=== PATIENT | female | born 1995 | race Caucasian/White ===

== ENCOUNTER 2017-05-17 09:07 | Inpatient (IN) | payer OTHER ==
[~2017-05-17] VITALS: Ht 160 cm; Wt 77.1 kg
[2017-05-17] VITALS (23 sets, daily range): BP systolic 105–148; BP diastolic 58–102
[2017-05-17] MEDS: PRENATAL VITAMINS CHEWABLE TABLET PO SCH (09:00)
[2017-05-17] MEDS ORDERED: TUMS500C PO (09:16)
[2017-05-17] MEDS ORDERED: UNIS25TA2 PO (09:17)
[2017-05-17] MEDS ORDERED: LACTATED RINGER'S 1000 ML IV STA (10:02)
[2017-05-17] MEDS ORDERED: LR 1,000 ML IV SCH (10:02)
--- NOTE | 2017-05-17 10:27 | HPEPDOC ---
Obstetrical History & Physical General Date of Admission May 17, 2017 at 09:48 History of Present Illness 21 y/o at 39+3 with LOF and increasing reg painful ctx's since 730. many ctx's last 2 days. No VB. Pos FM. 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) Past Medical History Medical History denies Surgical History: Dilatation and Curettage, Tonsilectomy Family History Significant Family History: No pertinent family hx Social History Marital Status: Family situation: Spouse/partner home Psychosocial History: No pertinent psych hx * Smoker: non-smoker Alcohol: Denies Drugs: denies Abuse Violence Screening Have you been hit/kicked/slapp: No Have you been sexually assault: No Imunizations Tdap status: current Influenza Status: declined Allergies Coded Allergies: No Known Allergies (Unverified , 05/17/17) Medications Scheduled (Unisom) 25 Mg Tab, 25 MG PO DAILY Calcium Carbonate (Tums) 500 Mg Chw, 500 MG PO DAILY Physical Examination Physical Examination GENERAL: Alert and oriented times three. BREAST: . ABDOMEN: Gravid and non-tender to touch. FETUS: Is vertex (VTX) by sterile vaginal examination, cx 3/80/-2, nitr pos with obv gush with check EXTREMITIES: No edema. No clonus. Vital Signs/I&O Vital Signs Date Time Temp Pulse Resp B/P (MAP) Pulse Ox O2 Delivery O2 Flow Rate FiO2 05/17/17 09:28 97.9 108 20 148/102 (117) Room Air Laboratory Data 24H LABS Laboratory Tests 2 05/17/17 09:55: Serology Scanned Report Hepatitis B Testing Urine Culture: No Growth Pertinent Laboratoy Data Blood Type: O+ RBC Antibody Screen: Negative HIV: Negative Hepatitis B: Negative Hepatitis C: Unknown Rapid Plasma Reagin: Nonreactive Rubella: Immune Varicella: Immune Chlamydia/Gonorrhea: Negative Group B Streptococcus: Negative Quad Screen Test: Negative Cystic Fibrosis: Negative Glucose Tolerance Test: 153 (neg 3 hr GTT) Anatomy Ultrasound Placenta Location: Posterior Normal Anatomy: Yes (tiny EI focus x1) Placenta Previa: No Assessment Variability: Moderate Accelerations: Positive Decelerations: None Tocometer Contractions: Yes Frequency: regular Duration: less than 60 seconds Strength: palpated as moderate Assessment/Plan Assessment SROM at 730. GBS neg. Plan Admit and orient. 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 Diet: clrs Group B Streptococcus (GBS) neg Labs and intravenous (IV) per unit protocol. Counseled on Pitocin possibility at noon if unchanged Lactated Ringers (LR): Bolus 1000 prior to epidural then 125 Anticipate C-S as appropriate. Sessions MD SESSIONS,SIAIAS Alvarado MD May 17, 2017 10:27
[2017-05-17 10:39] LABS: MEAN CORPUSCULAR HEMOGLOBIN 23.2 pg (27.0-33.0); MEAN CORPUSCULAR HGB CONC 30.3 g/dl (32.0-36.5); MEAN CORPUSCULAR VOLUME 76.4 fl (80.0-96.0); PLATELET COUNT, AUTOMATED 288 10^3/uL (150-450); RED CELL DISTRIBUTION WIDTH 16.3 % (11.5-14.5); WHITE BLOOD COUNT 13.4 10^3/uL (4.0-10.0)
[2017-05-17] MEDS ORDERED: FENTANYL 2MCG/ML ROPIVACAINE 0.2% IN 0.9% NACL 200ML IVBAG As Ordered ONE (11:19)
--- NOTE | 2017-05-17 13:54 | IPNPDOC ---
Text Note Date of Service The patient was seen on 05/17/17. NOTE FHT Cat 1, mod mary and pos accels, reg ctx Cx 7-8/100/-1 Difficulty handling her pain Nubain 10 IV and Phenergan 12.5 IV X1 now Sessions VS,Chela, I+O VS, Chela, I+O Laboratory Tests 05/17/17 10:15 Red Blood Count 4.36, Mean Corpuscular Volume 76.4 L, Mean Corpuscular Hemoglobin 23.2 L, Mean Corpuscular Hemoglobin Concent 30.3 L, Red Cell Distribution Width 16.3 H Vital Signs Date Time Temp Pulse Resp B/P (MAP) Pulse Ox O2 Delivery O2 Flow Rate FiO2 05/17/17 12:44 99.4 86 18 132/65 (87) Room Air 05/17/17 11:37 99 I&O- Last 24 Hours up to 6 AM 05/18/17 06:00 Intake Total 1000 ml Balance 1000 ml SESSIONS,ISAIAS Alvarado MD May 17, 2017 13:54
[2017-05-17] MEDS ORDERED: NALBUPHINE HCL 10 MG/ML AMP (J2300) IV ONE (14:00)
[2017-05-17] MEDS ORDERED: PROMETHAZINE INJ 25 MG/ML VIAL (J2550) IV ONE (14:00)
[2017-05-17] MEDS ORDERED: OXYTOCIN 30 UNITS IN 0.9% NaCl 500ML IV BAG (J2590) As Ordered ONE (15:05)
[2017-05-17] MEDS ORDERED: OXYTOCIN DRIP 30 UNITS in APPROPRIATE DILUENT 1 EA IV SCH (16:46)
[2017-05-17] MEDS ORDERED: RHOGAM 300 MCG (1500 IU) INJ (J2790) IM SCH (17:00)
[2017-05-17] MEDS ORDERED: MEASLES,MUMPS,RUBELLA VACCINE INJ (MMR-II) (90707) SC SCH (17:00)
[2017-05-17] MEDS ORDERED: DIBUCAINE 1% OINTMENT 30GM TOP PRN (17:00)
--- NOTE | 2017-05-17 17:03 | DNPDOC ---
[facility] Delivery Note Delivery Note DATE OF DELIVERY: [id number] @ 1623 PREDELIVERY DIAGNOSIS: 39/7 weeks' gestation and labor. POST DELIVERY DIAGNOSIS: Delivered. PROCEDURE: Spontaneous vaginal delivery DENTAL RESIDENT: Dr. Ross ANESTHESIA: Failed epidural-see anesthesia note, received Nubain/Phenergan >2 hrs prior to delivery ESTIMATED BLOOD LOSS: 200 mL. FINDINGS: 7 pound 1 ounce female infant, Score 8/9, nuchal cord times 2, loose DELIVERY SUMMARY: Great effort. Unmedicated. Vtx del'd, nuchal easily reduced X2, no delay of left ant or post shoulder. To abd. Vigorous. Cord C/C and cut by FOB. Cord blood. Placenta intact with traction and fundal massage. Both lac sites injected with 1% lidocaine. Small right labial separation repaired easily with 4-0 vicryl. Left sided perineal first degree lac repaired in standard fashion with 3-0 vicryl. Good cosmesis/hemostasis. Uncomplicated. ISAIAS Reyes MD, MD May 17, 2017 17:03
[2017-05-17] MEDS ORDERED: LIDOCAINE 1% MDV INJ 50 ML VIAL SC ONE (18:00)
[2017-05-17] MEDS ORDERED: diphenhydrAMINE INJ 50MG/ML VIAL (J1200) IV PRN (18:15)
[2017-05-17] MEDS ORDERED: EPIDURAL COMMENT XX SCH (18:15)
[2017-05-17] MEDS ORDERED: NALOXONE INJ 0.4 MG/1 ML VIAL (J2310) IV PRN (18:15)
[2017-05-17] MEDS ORDERED: ONDANSETRON 4MG/2ML VIAL (J2405) IV PRN (18:15)
[2017-05-17] MEDS ORDERED: FENTANYL/ROPIVACAINE/NACL BAG 200 ML EPIDURAL SCH (18:15)
[2017-05-17] MEDS ORDERED: REFRIGERATOR IV KEYS XX PRN (18:15)
[2017-05-17] MEDS ORDERED: EPIDURAL/PCA KEYS XX PRN (18:15)
[2017-05-17] MEDS: LR 1,000 ML IV SCH (18:23)
[2017-05-17] MEDS: FIORICET TAB PO PRN (18:34)
[2017-05-17] MEDS: DOCUSATE SODIUM 100 MG CAP PO SCH (21:05)
[2017-05-18] MEDS: FIORICET TAB PO PRN ×3 (00:26→16:15)
[2017-05-18] MEDS: LR 1,000 ML IV SCH ×3 (00:28→17:04)
[2017-05-18 01:15] VITALS: BP 124/77
[2017-05-18] MEDS: IBUPROFEN 800 MG TAB PO PRN ×3 (05:13→20:45)
[2017-05-18 06:03] VITALS: BP 117/51
--- NOTE | 2017-05-18 06:37 | IPNPDOC ---
Text Note Date of Service The patient was seen on 05/18/17. NOTE PPD1 prog note s/p wet tap (abnl lima) and on prn fioricet and maint IV fluids States feeling well, no complaints. MICHAEL improving. No heavy VB. Pain controlled. Voiding, ambulatory. Bonding well and feeding well. VSSAF CTAB RRR Ut at U-2, firm Ext no CCE a/p: Doing well. routine pp care. If MICHAEL worsens or is not resolved by tomorrow AM will need anesthesia consultation for consideration of patch prior to d/c. Sessions Chela CRUZ, I+O Chela LONG I+O Laboratory Tests 05/17/17 10:15 Red Blood Count 4.36, Mean Corpuscular Volume 76.4 L, Mean Corpuscular Hemoglobin 23.2 L, Mean Corpuscular Hemoglobin Concent 30.3 L, Red Cell Distribution Width 16.3 H Vital Signs Date Time Temp Pulse Resp B/P (MAP) Pulse Ox O2 Delivery O2 Flow Rate FiO2 05/18/17 06:03 99.1 104 18 117/51 (73) 05/17/17 15:04 Room Air 05/17/17 11:37 99 SESSIONS,ISAIAS Alvarado MD May 18, 2017 06:37
[2017-05-18] MEDS: DOCUSATE SODIUM 100 MG CAP PO SCH ×2 (08:45→20:45)
[2017-05-18] MEDS: PRENATAL VITAMINS CHEWABLE TABLET PO SCH (08:45)
[2017-05-18 18:00] VITALS: BP 141/61
[2017-05-19] MEDS: FIORICET TAB PO PRN ×3 (00:16→20:05)
[2017-05-19] MEDS: LR 1,000 ML IV SCH ×3 (01:05→13:27)
[2017-05-19] MEDS: IBUPROFEN 800 MG TAB PO PRN (04:59)
[2017-05-19 05:00] VITALS: BP 104/53
--- NOTE | 2017-05-19 07:19 | DS.PDOC ---
Discharge Summary General Date of Admission May 17, 2017 at 09:48 Date of Discharge [id number] Discharge Summary Discharge Summary Admission Diagnosis: active labor at term Discharge Diagnosis: s/p uncomplicated spontaneous vaginal delivery Condition: stable Meds on discharge: Tylenol, Colace, Lanolin, Motrin, Nor QD for PP contraception Hospital Course: Pt is a 22 yo admitted in active labor at term. The pt progressed to well through labor and had an uncomplicated . Unfortunately had a wet tap with epidural attempt. She had 2 doses of IV antibiotics for pos GBS. Please see delivery note for details. On PPD2, the pt had normal VS, the pt was tolerating reg diet, ambulating, pain was well controlled, minimal lochia. She was desirous of discharge and was discharged on PPD2 with follow up in 6-8wks in OB clinic. Anesthesia was to evaluate and possibly treat with a blood patch before discharge on PPD2. Home recommendations: Nothing in vagina for 6 weeks Vital Signs/I&Os Vital Signs Date Time Temp Pulse Resp B/P (MAP) Pulse Ox O2 Delivery O2 Flow Rate FiO2 05/19/17 05:00 98.9 85 16 104/53 (70) 97 Room Air Discharge Medications Scheduled (Unisom) 25 Mg Tab, 25 MG PO DAILY, (Reported) Calcium Carbonate (Tums) 500 Mg Chw, 500 MG PO DAILY, (Reported) Allergies Coded Allergies: No Known Allergies (Unverified , 05/17/17) STEPHANIE,ISAIAS Alvarado MD May 19, 2017 07:19
--- NOTE | 2017-05-19 07:26 | IPNPDOC ---
Text Note Date of Service The patient was seen on 05/19/17. NOTE PPD2 prog note s/p wet tap (abnl lima) and on prn fioricet and maint IV fluids States feeling OK but complains of signif MICHAEL with holding her head up or sitting up. No heavy VB. Pain controlled. Voiding, ambulatory. Bonding well and feeding well. VSSAF CTAB RRR Ut at U-2, firm Ext no CCE a/p: Doing well. MICHAEL worsening, is not resolved. anesthesia consultation for strong consideration of patch prior to d/c this AM Sessions MD LONG,Chela, I+O VSChela, I+O Vital Signs Date Time Temp Pulse Resp B/P (MAP) Pulse Ox O2 Delivery O2 Flow Rate FiO2 05/19/17 05:00 98.9 85 16 104/53 (70) 97 Room Air SESSIONS,ISAIAS Alvarado MD May 19, 2017 07:26
[2017-05-19] MEDS ORDERED: COLA100C5 PO (08:23)
[2017-05-19] MEDS ORDERED: PRENTAB9 PO (08:25)
[2017-05-19] MEDS ORDERED: ADVI200C5 PO (08:26)
[2017-05-19] MEDS: PRENATAL VITAMINS CHEWABLE TABLET PO SCH (08:51)
[2017-05-19] MEDS: DOCUSATE SODIUM 100 MG CAP PO SCH ×2 (08:51→20:02)
[2017-05-19 13:00] VITALS: BP 127/70
[2017-05-19 13:30] VITALS: BP 124/71
[2017-05-19 14:30] VITALS: BP 114/65
[2017-05-19 15:30] VITALS: BP 122/73
[2017-05-19 18:00] VITALS: BP 126/69
[2017-05-20] VITALS (7 sets, daily range): BP systolic 117–150; BP diastolic 67–80
[2017-05-20] MEDS: LR 1,000 ML IV SCH ×2 (00:46→08:31)
--- NOTE | 2017-05-20 02:20 | REPUSA ---
CLINICAL HISTORY: Dyspnea COMMENTS: The cardiac silhouette is enlarged. There is evidence for pulmonary venous congestion compatible with fluid overload/edema. Bilateral basilar airspace opacities of the lungs. There is no definite radiographic evidence for a lung mass. Bony structures appear normal. IMPRESSION: 1. Enlarged cardiac silhouette. 2. Pulmonary venous congestion compatible with fluid overload/edema. 3. Bilateral basilar airspace opacities. Possibly secondary to multifocal pulmonary congestion. Thank you for your kind referral of this patient.
[2017-05-20] MEDS: FIORICET TAB PO PRN ×3 (02:56→16:29)
[2017-05-20] MEDS: PRENATAL VITAMINS CHEWABLE TABLET PO SCH (08:33)
[2017-05-20] MEDS: DOCUSATE SODIUM 100 MG CAP PO SCH ×2 (08:33→21:47)
[2017-05-20] MEDS ORDERED: FUROSEMIDE 20 MG/2 ML VIAL (J1940) IV ONE (18:30)
[2017-05-21] MEDS: FIORICET TAB PO PRN ×2 (00:21→06:16)
[2017-05-21 02:15] VITALS: BP 137/75
[2017-05-21 06:24] VITALS: BP 121/64
[2017-05-21] MEDS ORDERED: DIBU1OIN TOP (07:42)
[2017-05-21] MEDS ORDERED: FIOR1CAP PO (07:42)
[2017-05-21] MEDS: PRENATAL VITAMINS CHEWABLE TABLET PO SCH (07:55)
[2017-05-21] MEDS: DOCUSATE SODIUM 100 MG CAP PO SCH (07:55)
--- NOTE | 2017-05-21 08:22 | DSES ---
DATE OF ADMISSION: 05/17/2017 DATE OF DISCHARGE: This is a 22-year-old, 2, now para 1, admitted at 39 and 3 weeks with spontaneous rupture of membranes in labor. She had a spontaneous vaginal delivery of a live female , 7 pounds 1 ounce, Apgars of 8 and 9 at one and five minutes respectively. Cord was around the neck times two. She had a failed epidural which ended up as a spinal headache. She required a blood patch. She also had some pulmonary edema with fluid overload requiring vigorous therapy. She had 10 mg of Lasix and put out approximately 1500 mL of fluid. Initial examination showed that she had decreased breath sounds to the lungs. Chest x-ray confirmed pulmonary fluid overload and she had pedal edema. After her diuresis, her pedal edema went down considerably. She was mobilized. She felt better and was able to sit and stand. She had no evidence of headache taking Fioricet on a regular interval basis. Her admitting hemoglobin was 10.1, hematocrit 33.3 and platelets were 288. Her vital signs today revealed her blood pressure is 121/64, respirations 20, pulse 84, and temperature is 98.6. Her total ins and outs today on a 24-hour basis was 1230 mL of fluid. The rest of the examination was unremarkable. She is normocephalic, atraumatic. Neck with full range of motion. Pupils equal and reactive to light. No pain on movement of her head. Her distal pulses are symmetric. No evidence of deep vein thrombosis (DVT), pulmonary embolism (PE) or superficial phlebitis. Pedal edema is resolved. Chest is clear this morning. No wheezes or rhonchi. No costovertebral angle (CVA) tenderness. Uterus is 2 below. Lochia is moderate. Four quadrant bowel sounds are noted. Perineum is healing. She has no rashes, lesions or pruritus. No arthralgia or myalgia. No complaint of cough, wheezes, shortness of breath or dyspnea on exertion. No headache. No chest pain. No bleeding. Neuro complete. No incontinency or frequency. No nausea, vomiting, diarrhea or constipation. In summary, we have a term gestation who delivered a live female and had a failed epidural and spinal headache which resolved. The patient is discharged to followup in the office in two weeks' time.
[2017-05-21 10:00] VITALS: BP 122/96
== END 2017-05-21 12:15 | disposition home or self-care (01) | DRG 775 ==
LOC: M LDO 09:07 → M LDI 09:48 → M OBS 18:40
PROVIDERS: ADMIT Obstetrics & Gynecology; ATTEND Obstetrics & Gynecology
PROC: 10E0XZZ Delivery of Products of Conception, External Approach (ICD-10-PCS; principal; 2017-05-17)
PROC: 0HQ9XZZ Repair Perineum Skin, External Approach (ICD-10-PCS; 2017-05-17)
DX: O69.82X0 Labor and delivery complicated by other cord entanglement, without compression, not applicable or unspecified (principal); Z37.0 Single live birth; Z3A.39 39 weeks gestation of pregnancy; O70.0 First degree perineal laceration during delivery; O99.820 Streptococcus B carrier state complicating pregnancy

== ENCOUNTER 2017-05-23 05:37 | Inpatient (IN) | payer OTHER ==
[~2017-05-23] VITALS: Ht 160 cm; Wt 70.1 kg
[~2017-05-23 05:37] MED LIST: ADVI200C5 PO; COLA100C5 PO; DIBU1OIN TOP; FIOR1CAP PO; PRENTAB9 PO; TUMS500C PO; UNIS25TA2 PO
[2017-05-23 06:25] LABS: BASO % 0.1 % (0.0-1.0); EOS # 0.1 10^3/uL (0.0-0.50); EOS % 0.8 % (0.0-3.0); IMMATURE GRANULOCYTE % 2.8 % (0-0); LYMPH # 1.3 10^3/uL (1.5-6.5); LYMPH % 7.8 % (24.0-44.0); MEAN CORPUSCULAR HEMOGLOBIN 23.9 pg (27.0-33.0); MEAN CORPUSCULAR HGB CONC 30.8 g/dl (32.0-36.5); MEAN CORPUSCULAR VOLUME 77.5 fl (80.0-96.0); MONO # 0.7 10^3/uL (0.0-0.8); MONO % 4.3 % (0.0-5.0); NEUTROPHILS # 13.7 10^3/uL (1.8-7.7); NEUTROPHILS % 84.2 % (36.0-66.0); PLATELET COUNT, AUTOMATED 331 10^3/uL (150-450); RED CELL DISTRIBUTION WIDTH 17.2 % (11.5-14.5); WHITE BLOOD COUNT 16.2 10^3/uL (4.0-10.0)
[2017-05-23 06:36] LABS: INR 1.03
[2017-05-23 06:50] LABS: ALBUMIN 2.1 GM/DL (3.2-5.2); ALBUMIN/GLOBULIN RATIO 0.53 (1.00-1.93); ALKALINE PHOSPHATASE 181 U/L (45-117); ALT/SGPT 26 U/L (12-78); ANION GAP 10 MEQ/L (8-16); AST/SGOT 15 U/L (7-37); BILIRUBIN,DIRECT < 0.1 MG/DL (0.0-0.2); BILIRUBIN,TOTAL 0.2 MG/DL (0.2-1.0); BLOOD UREA NITROGEN 6 MG/DL (7-18); CALCIUM LEVEL 8.1 MG/DL (8.5-10.1); CARBON DIOXIDE LEVEL 20 MEQ/L (21-32); CHLORIDE LEVEL 115 MEQ/L (98-107); GLOMERULAR FILTRATION RATE > 60.0 (>60); GLUCOSE, FASTING 94 MG/DL (70-105); SODIUM LEVEL 145 MEQ/L (136-145); TOTAL PROTEIN 6.1 GM/DL (6.4-8.2)
[2017-05-23] MEDS ORDERED: ISOVUE-370 76% 100ML VIAL (Q9967) As Ordered ONE (06:52)
[2017-05-23 07:00] LABS: ABG BASE EXCESS -6.7 (-2.0-2.0); ABG HCO3 15.3 MEQ/L (22.0-26.0); ABG PARTIAL PRESSURE O2 119.1 mmHg (75.0-100.0); ABG STANDARD HCO3 18.9 MEQ/L (22.0-26.0); ABG TOTAL CO2 15.9 MEQ/L (22.0-29.0); ABG pH (ARTERIAL) 7.524 UNITS (7.350-7.450)
--- NOTE | 2017-05-23 07:40 | REPUSA ---
CLINICAL HISTORY: Dyspnea, exclude PE. TECHNIQUE: Multiple incremental axial, coronal and oblique images are obtained from the thoracic inle t to the upper abdomen. Intravenous contrast material was administered as per pulmonary embolism prot ocol. COMMENTS: Small pleural effusions. Passive atelectatic airspace disease in the lower lobes. Diffuse interstitial bilateral pulmonary thickening. Diffuse bilateral perihilar ground glass densities. Mild cardiomegaly. There is excellent opacification of pulmonary arterial system without evidence for pulmonary embolism . Aorta is of normal caliber without evidence for dissection or aneurysm. There is no evidence of pleural or parenchymal mass. There are no pleural effusions. There is no evid ence of hilar or mediastinal lymphadenopathy. The heart and great vessels are within normal limits. Images of the upper abdomen demonstrate no evidence of adrenal mass. The bony structures are free of lytic or blastic lesions. IMPRESSION: No evidence for pulmonary embolism. Small pleural effusions. Passive atelectatic airspace disease in the lower lobes. Diffuse interstitial bilateral pulmonary thickening. Diffuse bilateral perihilar ground glass densities. Mild cardiomegaly. Findings can be secondary to pulmonary congestion and interstitial pulmonary edema. Clinical evaluati on and followup are recommended to exclude associated infection/inflammatory pathology. Thank you for your kind referral of this patient.
--- NOTE | 2017-05-23 07:50 | REP ---
Clinical: Dyspnea. Technique: PA and lateral. Comparison: 05/20/2017. Findings: Bilateral perihilar and basilar atelectasis with small pleural effusions. Mediastinum and cardiac silhouette are within normal limits. No pneumothorax. Skeletal structures are intact. Impression: Perihilar and bibasilar atelectasis with small pleural effusions similar to prior examination. Signed by Franko Guo MD 05/23/2017 07:42 A
--- NOTE | 2017-05-23 07:51 | ECGEPIP ---
Stationary ECG Study [facility] - ED Test Date: 2017-05-23 Pat Name: VARUN GILL Department: Room: - Gender: F Psychiatric Nurse: sb : 1995 Requested By: JEROMY GORMAN Order Number: [id number] Reading MD: Asher Worley Measurements Intervals [place] Rate: 86 P: 12 KS: 114 QRS: 81 QRSD: 89 T: 34 QT: 369 QTc: 443 Interpretive Statements SINUS RHYTHM WITH SHORT [place] INTERVAL NO PRIORS FOR COMPARISON Electronically Signed On 05-23-2017 7:51:18 EST by Asher Worley
[2017-05-23] MEDS: ASCORBIC ACID 500 MG TAB PO SCH (09:00)
[2017-05-23] MEDS: FERROUS SULFATE 325MG TAB PO SCH (09:00)
[2017-05-23] MEDS: PRENATAL VITAMINS CHEWABLE TABLET PO SCH (09:00)
[2017-05-23] MEDS ORDERED: FUROSEMIDE 40 MG/4 ML VIAL (J1940) IV ONE (09:15)
[2017-05-23] MEDS ORDERED: ACETAMINOPHEN TAB 650MG DOSE (2X325MG) PO PRN (09:15)
[2017-05-23] MEDS ORDERED: ONDANSETRON 4MG/2ML VIAL (J2405) IV PRN (09:15)
[2017-05-23] MEDS ORDERED: ACET1TAB17 PO (09:30)
[2017-05-23] MEDS ORDERED: TUMS500C PO (09:30)
[2017-05-23] MEDS ORDERED: POTASSIUM CHLORIDE 10 MEQ SR TABLET PO ONE (09:30)
[2017-05-23] MEDS ORDERED: LEVALBUTEROL 1.25 MG/0.5 ML CONCENTRATE NEB INH PRN (10:30)
[2017-05-23] MEDS ORDERED: FIORICET TAB PO PRN ×2 (10:30→19:00)
[2017-05-23] MEDS ORDERED: ACETAMINOPHEN 325 MG TAB PO PRN (10:30)
[2017-05-23] MEDS ORDERED: GASTROGRAFIN SOLUTION 30ML (Q9963) PO ONE ×3 (10:35→11:05)
[2017-05-23] MEDS ORDERED: MAG SULF 1GM/100ML (MAG RUN) 1 GM in APPROPRIATE DILUENT 1 EA IV ONE (11:00)
[2017-05-23] MEDS: LEVALBUTEROL 1.25 MG/0.5 ML CONCENTRATE NEB INH SCH ×2 (11:31→19:31)
--- NOTE | 2017-05-23 11:31 | HPE ---
DATE OF ADMISSION: 05/23/2017 PRIMARY CARE PHYSICIAN: None. LABORER WHARF: Sai Guerra MD CHIEF COMPLAINT: Shortness of breath. HISTORY OF PRESENT ILLNESS: This is a 22-year-old 2, para 1 admitted at 39 and 3 weeks status post vaginal delivery who presents with complaint of lower extremity edema, worsening shortness of breath, initially with exertion, now currently at rest. Patient was given one dose of Lasix and was discharged home and now represents with worsening symptoms. The patient complains of weight gain, worsening dyspnea, no diaphoresis. Complains of substernal chest pain. No fever or chills with some dry cough. Positive paroxysmal nocturnal dyspnea (PND) and lower extremity edema and was found to have elevated BNP of 3141, ongoing vaginal bleeding, and hemoglobin of 7. Chest CT shows bilateral pleural effusions. The hospitalist service was called for management of new onset effusions, anemia and hypokalemia. The patient does admit to having one episode of diarrhea yesterday, a large amount when she got home, she has had low grade temperatures at home, found to have a slight increase in white count with increasing white count of16,000. The patient did have an epidural with post epidural headaches treated with a blood patch. She continues to take Fioricet for persistent headaches at home and continues to have vaginal bleeding about 1-2 pads every 6 hours. PAST MEDICAL HISTORY: 05/21/2017. Tonsillectomy. PAST SURGICAL HISTORY: Vaginal delivery. HOME MEDICATIONS: - Fioricet as needed - Colace 100 twice a day - multivitamin one tablet daily - calcium carbonate 500 as needed - dibucaine topical ointment as needed - acetaminophen 650 every 6 hours as needed SOCIAL HISTORY: Previous smoker, one pack of cigarettes every other day for about 10 years, quit a year ago when she found she was . Social alcohol use, quit about a year ago. 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 FAMILY HISTORY: Mother and father in their 50s. No medical problems. Mother is age 46. Maternal grandmother with ovarian cancer. Paternal great grandmother with breast cancer. REVIEW OF SYSTEMS: Per history of present illness. 10 point system otherwise negative. PHYSICAL EXAMINATION: Temperature 99.5, pulse 94, respiratory rate 20, blood pressure 147/86. Generally, patient is awake, alert and oriented times three, answering questions appropriately. Anicteric sclera, no jaundice. No thyromegaly. Moist mucous membranes. Lungs are diminished with fine crackles at the bases. Heart S1, S2, sinus tachycardia. Abdomen is soft, slightly tender in the bilateral lower quadrants. No rebound or guarding. Positive bowel sounds. Post . Extremities positive 1+ edema. EKG sinus rhythm. Ventricular rate of 86. Short LA interval. White count 6.3, hemoglobin 7, hematocrit 22.7, platelet count 331. Sodium 145, potassium 3, chloride 115, bicarb 20, BUN 6, creatinine 0.5, glucose of 94, Troponin less than 0.02, BNP 3141, total protein 6.1, TSH is pending, albumin is 2.1. Microbiology: One blood culture is pending. Urinalysis is pending. Chest CT shows bilateral small pleural effusions. Positive atelectasis in the lower lobes. Decreased interstitial bilateral pulmonary thickening. Diffuse bilateral perihilar ground glass densities. Findings can be mild cardiomegaly secondary to pulmonary congestion verus interstitial from pulmonary edema, infectious or inflammatory etiology. ASSESSMENT/PLAN: This is a 22-year-old female on 05/21/2017 who presents with ongoing dyspnea, lower extremity edema, who presented to the ER, was found to have small bilateral effusions and ground glass opacities on CT of the chest. The patient was found to have severe anemia with hemoglobin of 7 with ongoing vaginal bleeding as well as elevated BNP, potassium of 3. The hospitalist service was called for admission. Patient will be admitted as an inpatient for two midnights for the following issues: 1. Shortness of breath, multifactorial. Most likely secondary to severe symptomatic anemia with hemoglobin of 7, bilateral effusions noted on the CT of the chest. Rule out cardiomyopathy with echocardiogram. Continue with Lasix diuresis for now. Nebulizer treatments for symptomatic relief. Will consult with pulmonology once the patient is euvolemic if persistent symptoms occur. Patient will be transfused red blood cells. Check hemoglobin and hematocrit and continue with Lasix diuresis. Type and cross. Check iron studies and supplement with iron and vitamin C. 2. Diarrhea with hypokalemia. Low potassium level. GI panel will be checked as the patient was recently in the hospital. 3. Prior history of smoking. Quit smoking when she found out she was , about a year ago. 4. Diarrhea. Check gastrointestinal (GI) panel.
[2017-05-23 12:20] LABS: REASON FOR REVIEW COMPREHENSIVE REVIEW
--- NOTE | 2017-05-23 12:30 | REP ---
Clinical: Lower abdominal pain. Technique: Axial noncontrast images from the lung bases to the pubic symphysis using oral contrast material. Coronal and sagittal re-formations obtained. Comparison: None. Findings: The presumed bladder and uterus are both isoechoic and abnormally enlarged/distended and difficult to differentiate due to recent contrast enhanced chest CT increasing the density of fluid within the bladder to be essentially identical with the enlarged uterine parenchymal density. The structures together may anterior greater than 20 x 11 x 14 cm. These findings are otherwise nonspecific by current noncontrast evaluation but likely related to the patient's symptoms. Clinical/physical correlation and pelvic ultrasound are suggested. No free fluid or adenopathy is identified within the pelvis. Moderate bilateral pleural effusions are appreciated with bibasilar atelectasis. Liver, spleen, pancreas, gallbladder, bilateral adrenal glands and kidneys are normal. The enteric system is without obstruction or acute inflammatory process. Pelvic structures described above. Surrounding musculoskeletal structures are intact. Impression: 1. Bladder and uterus together are enlarged and isoechoic making further evaluation limited by current noncontrast examination. Findings are abnormal and require nickel/physical correlation as well as pelvic ultrasound. 2. Moderate bilateral pleural effusions and basilar atelectasis. Signed by Franko Guo MD 05/23/2017 12:22 P
--- NOTE | 2017-05-23 12:32 | ECHO ---
DATE OF PROCEDURE: 05/23/2017 REFERRING PHYSICIAN: Dr. Daisy Harrison INDICATION: Dyspnea in a 22-year-old female who is five days . HEIGHT : 63 inches WEIGHT: 76 kg DIMENSIONS: IVS: 1.2 LV: 4.5 LVPW: 0.9 LA: 3.9 Aorta: 3.0 FINDINGS: The study is of good technical quality. Left ventricle is of normal size and systolic function with estimated LVEF 60-65%. Right ventricle is also normal size and systolic function. Both atria appear normal. All four cardiac valves were well seen and appear normal. There is trace non compressive pericardial effusion. Inferior vena cava is of normal size and appropriately collapses with respiration, indicative of likely normal central venous pressure. Aortic root and aortic arch appear normal. Abdominal aorta was not well seen. Doppler interrogation reveals competent aortic and mitral valves. There is trace tricuspid insufficiency. Calculated pulmonary artery pressure is in the mid 20s corresponding to normal values. Pulmonic valve exhibits trace insufficiency. Evaluation of diastolic function reveals normal diastolic functional of left ventricle (Mitral E velocity is 96 cm/sec, A velocity 71, E prime septal 11 and E prime lateral 11 cm/sec). CONCLUSIONS: 1. Study is of good technical quality. 2. Normal LV size, systolic and diastolic function. 3. No significant valvular disease. 4. Normal central venous pressure and pulmonary artery pressure. 5. Trace pericardial effusion. 7. Also visualized are left pleural effusion and ascites. Recommendations: SBE prophylaxis is not recommended. MTDD
[2017-05-23 12:44] LABS: MAGNESIUM LEVEL 2.5 MG/DL (1.8-2.4); TOTAL IRON BINDING CAPACITY 327 UG/DL (250-450)
[2017-05-23 12:45] LABS: FERRITIN 49 NG/ML (8-252)
[2017-05-23] MEDS: FUROSEMIDE 40 MG/4 ML VIAL (J1940) IV SCH ×2 (13:02→17:50)
[2017-05-23 13:06] VITALS: BP 152/78
[2017-05-23 13:20] VITALS: BP 130/76
--- NOTE | 2017-05-23 13:27 | CR ---
DATE OF CONSULTATION: 05/23/2017 REFERRING PHYSICIAN: Dr. Harrison and Dr. Perrin INDICATION: Dyspnea. HISTORY OF PRESENT ILLNESS: Ayde is a 22-year-old female who just delivered a healthy girl on 05/17/2017 after a fairly uneventful . She said that she had no problems in the early period, but then approximately two days after she was discharged home, she started having trouble with orthopnea. She said as long as she was in an upright position she felt fine, but lying down was very difficult for her. She did not have any chest pain per se and did not have any other symptoms. She even felt that with ambulation she did not have significant dyspnea, but horizontal position just was not tolerated. She went to the clinic. A chest x-ray was obtained and revealed reportedly mild vascular redistribution. She was given a single dose of Lasix, felt better and went home. This morning, though, she woke up again with essentially orthopnea. She could not get comfortable and was not able to tolerate a horizontal position at all and actually when she was sitting up from a horizontal position she briefly lost consciousness. That prompted her to bring her to the emergency room for further evaluation. She had a chest x-ray and the initial diagnosis was congestive heart failure with pulmonary edema. The patient received a single dose of the furosemide IV and supplemental oxygen. She says that shortly after the oxygen administration she felt better and after she received furosemide she felt much better. Besides dyspnea and orthopnea she denies any palpitation and denies any chest pain. She does report that in the last several days she had on and off elevated temperature, but she usually has been taking Tylenol [id number] so it has not been much of an issue. She reports having had peripheral edema for most of the , but does not recall that there were ever would be a protein in her urine. She did not have any problems with blood pressure. She already had an electrocardiogram that was unremarkable and also underwent an echocardiogram that revealed preserved left ventricular systolic function, normal diastolic function, no significant valvular disease and normal central venous pressure and pulmonary artery pressure. Trace pericardial effusion was noted and it appears that there is small amount of ascites and left pleural effusion as well. At bedside, the patient feels much better. She says that right now she has no trouble lying flat at all. Besides the cardiac complaints, she also has a headache. She had problems with epidural and received a blood patch that was only partially successful. She denies any nausea or vomiting. She did have a single episode of diarrhea last night. Otherwise, her review of systems has been negative. PHYSICAL EXAMINATION: Young, white female, very pleasant, alert, oriented and appropriate. Last set of vital signs revealed blood pressure 130/81, heart rate in 90s and low 100s, afebrile, saturation 95% on room air. Weight is documented 76.36 kg. Her jugular venous pulse (JVP) is not elevated. I do not appreciate carotid bruit. Lungs are clear to auscultation with good air movement bilaterally. Heart exam reveals a regular rhythm. I would do not appreciate any gallop, rub or murmur, including positioning the patient. Abdomen is soft. There is mild tenderness in the lower abdomen, but otherwise nontender. Good bowel sounds. No hepatosplenomegaly. There is trace peripheral edema. Peripheral pulses are good quality. Skin is intact, even though she appears pale. Laboratory-bauer, CBC reveals a white blood cell count 16.2, hemoglobin 7, hematocrit 22 and platelet count 331,000. There are some major granulocytes in the differential. Basic metabolic panel with potassium 3, BUN 6, creatinine 0.5 , glucose 94. Normal liver function tests, but mildly elevated alkaline phosphatase at 181. Normal cardiac enzymes and terminal probe BNP is high at 3100. Albumin is 2.1 and TSH 0.5. INR is 1.0. She had a CT angiography of the chest that was negative for pulmonary embolism and is otherwise a fairly unremarkable study, but for possible small effusions. The chest x-ray seems suggestive of borderline cardiomegaly and vascular redistribution, but is not overly impressive. Echo and electrocardiogram as above. PAST MEDICAL HISTORY: Negative. PAST SURGICAL HISTORY: Negative. SOCIAL HISTORY: The patient is a . They just moved to [facility] in October 2016 and previous location was in [place], Does not smoke and no significant alcohol consumption. FAMILY HISTORY: Negative for sudden cardiac or cardiomyopathy in first-degree relatives. OUTPATIENT MEDICATIONS: None. She reports intolerance to Zyrtec, codeine, mushroom and pseudoephedrine. ASSESSMENT/PLAN: Mrs. Tovar is a 22-year-old female who presents with symptoms of dyspnea and orthopnea a few days after delivery. She is very anemic and also hypoalbuminemic. Her echocardiogram though is relatively normal other than revealing trivial pericardial effusion. I suspect that her symptoms are principally related to anemia. I am not sure how to interpret the immature cells and elevated white cell count. I ordered a urinalysis because the hypoalbuminemia seems to be rather peculiar in this situation. From a cardiac perspective though, I do not have any specific recommendations. Her CVP is not high and consequently I am not convinced that giving her around the clock diuretics is indicated. I suspect that one or two additional doses to correct the volume after administration of blood transfusion will be sufficient. Further management will depend on her clinical course, but she is already feeling much better and so I am hopeful that her hospitalization will be brief. YAW
[2017-05-23] MEDS ORDERED: HEPARIN SOD (PORCINE) 5000 UNITS/ML VIAL SC SCH (14:00)
[2017-05-23 15:45] VITALS: BP 130/76
[2017-05-23] MEDS: PIPERACILLIN/TAZOBACTAM SOD 3.375 GM in APPROPRIATE DILUENT 1 EA IV SCH (17:51)
[2017-05-23 20:00] VITALS: BP 133/84
[2017-05-24] VITALS: BP 122/75
[2017-05-24] MEDS: FUROSEMIDE 40 MG/4 ML VIAL (J1940) IV SCH ×2 (00:21→05:16)
[2017-05-24] MEDS: PIPERACILLIN/TAZOBACTAM SOD 3.375 GM in APPROPRIATE DILUENT 1 EA IV SCH ×3 (00:21→11:30)
[2017-05-24] MEDS: LEVALBUTEROL 1.25 MG/0.5 ML CONCENTRATE NEB INH SCH ×4 (03:47→11:14)
[2017-05-24 04:00] VITALS: BP 130/75
[2017-05-24 05:18] LABS: MEAN CORPUSCULAR HEMOGLOBIN 24.8 pg (27.0-33.0); MEAN CORPUSCULAR VOLUME 77.6 fl (80.0-96.0); PLATELET COUNT, AUTOMATED 394 10^3/uL (150-450); RED CELL DISTRIBUTION WIDTH 16.5 % (11.5-14.5); WHITE BLOOD COUNT 13.3 10^3/uL (4.0-10.0)
[2017-05-24 05:23] LABS: POS COUNT POS FLAG; POSITIVE MORPH POS FLAG
[2017-05-24 05:24] LABS: ADD MANUAL DIFFER YES; DIFF SLIDE NUMBER 56
[2017-05-24 06:51] LABS: BANDS 3 % (< 11); EOSINOPHILS 2 % (0-5)
[2017-05-24 06:53] LABS: ANISOCYTOSIS 1+; POLYCHROMASIA 1+
[2017-05-24] MEDS ORDERED: FUROSEMIDE 40 MG TAB PO ONE (07:00)
[2017-05-24 07:18] LABS: ANION GAP 11 MEQ/L (8-16); BLOOD UREA NITROGEN 8 MG/DL (7-18); CALCIUM LEVEL 8.7 MG/DL (8.5-10.1); CARBON DIOXIDE LEVEL 24 MEQ/L (21-32); CHLORIDE LEVEL 107 MEQ/L (98-107); CREATININE FOR GFR 0.56 MG/DL (0.55-1.02); GLOMERULAR FILTRATION RATE > 60.0 (>60); GLUCOSE, FASTING 83 MG/DL (70-105); SODIUM LEVEL 142 MEQ/L (136-145)
[2017-05-24 08:00] VITALS: BP 110/74
[2017-05-24] MEDS: PRENATAL VITAMINS CHEWABLE TABLET PO SCH (09:37)
[2017-05-24] MEDS: FERROUS SULFATE 325MG TAB PO SCH (09:38)
[2017-05-24] MEDS: POTASSIUM CHLORIDE 10 MEQ SR TABLET PO SCH ×2 (09:38→11:30)
[2017-05-24] MEDS: ASCORBIC ACID 500 MG TAB PO SCH (09:38)
--- NOTE | 2017-05-24 11:51 | ECGEPIP ---
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
[2017-05-24 12:00] VITALS: BP 133/80
[2017-05-24] MEDS ORDERED: LASI20TA PO (12:30)
[2017-05-24] MEDS ORDERED: POTA1TAB14 PO (12:30)
[2017-05-24] MEDS ORDERED: AUGM875T28 PO ×2 (12:31→14:00)
[2017-05-24] MEDS ORDERED: BACITAB PO ×2 (12:32→14:00)
[2017-05-24] MEDS ORDERED: POTA20TA4 PO (14:00)
[2017-05-24] MEDS ORDERED: LASI40TA PO (14:00)
--- NOTE | 2017-05-24 14:56 | IPN ---
DATE: 05/24/2017 Mrs. Tovar reports a fairly dramatic improvement in her condition. She slept without difficulty. She did not have any chest discomfort and she did not have any paroxysmal nocturnal dyspnea (PND). She continues to have some vaginal bleeding as expected. Her maximum temperature (Tmax) was 100.2 yesterday afternoon but has been afebrile since. Blood pressure 110/74. Heart rate has been from 60s to 100s, sinus rhythm. No ectopic beats. Saturation 99% on room air. Fluid balance yesterday was documented about a liter and half negative. Weight is 70.1 kg. Her jugular venous pulse (JVP) is not elevated. I do not appreciate carotid bruit. Lungs are clear. Heart exam irregular rhythm. No gallop, rub or murmur is noted. No edema. Neurologically intact. Laboratory bauer, hemoglobin 11.6, hematocrit 36, platelet count 93,000. Basic metabolic panel is normal but for a low potassium of 3.0 ASSESSMENT AND PLAN: Mrs. Tovar is a 22-year-old female who presented a few days after delivery of her first child with symptoms highly suggestive of congestive heart failure (CHF) with orthopnea. There was evidence for bilateral pleural effusions, even though relatively small and she had elevated and terminal probe brain natriuretic peptide (BNP). Simultaneously, she was quite hypoalbuminemic and very anemic. Her echocardiogram revealed preserved left ventricular (LV) systolic function and normal pulmonary artery pressure. I am a little bit perplexed with the whole presentation. The essentially normal echocardiogram argues against cardiomyopathy even though the symptoms were quite suggestive I believe that the severe anemia and yet additional potential infection may have played a role. From my perspective I think patient can be discharged home. I would give her a prescription for Lasix 20 mg to be taken only as needed for peripheral edema or shortness of breath. I do not believe that she needs any additional medications. From my perspective, as far as the anemia is concerned, it is corrected by 3 units of packed red blood cells she received. S she was started on supplemental iron and that should be continued for at least 2 or 3 months. I intend to see her in followup in the in the clinic in 2 or 3 weeks, but from my perspective, she can be discharged home.
--- NOTE | 2017-05-24 14:56 | REP ---
CHEST, PORTABLE: AP portable view of the chest is performed and compared to a prior study of 05/23/2017. There is significant improvement of bilateral infiltrates. There may be some minimal residual interstitial edema in the lung bases. There appears to be a small left pleural effusion. Heart is not significantly enlarged. Mediastinal silhouette is unremarkable and unchanged. IMPRESSION: Significant improvement of previously noted diffuse bilateral infiltrates with some minimal interstitial infiltrate in both lung bases. Small left effusion. Signed by Adalid Mitchell MD 05/24/2017 11:58 A
--- NOTE | 2017-05-24 14:58 | IPN ---
DATE: 05/24/2017 Maximum temperature (t-max) of 100.4 yesterday. The patient's shortness of breath has significantly improved. Fatigue has resolved. She has been transfused 4 units of blood with a current hemoglobin of 11.6. The patient continues to have vaginal bleed, but has not soaked a pad today. White count decreased from 16 to 13, currently on Zosyn. Urine culture is negative for infection. CT of the abdomen and pelvis shows enlarged hyperechoic bladder and uterus. No other complaints this morning. Telemetry is unremarkable, showed sinus tachycardia. Maximum temperature (t-max) 100.4, current temperature 98.9. Pulse 86, respiratory rate 12, blood pressure 110/74, 99% on room air. GENERAL: Awake, alert, oriented times three. Answering questions appropriately. No jugular venous distention (JVD). LUNGS: Clear to auscultation. No wheezes, rales, or rhonchi. HEART: S1, S2. Sinus rhythm with episodes of sinus tachycardia. ABDOMEN: abdomen. No tenderness. Positive bowel sounds times four quadrants. EXTREMITIES: Decreased trace edema. LABORATORY DATA: White count 13.3, hemoglobin 11, hematocrit 36, platelet count 394. Sodium 142, potassium 3, chloride 107, bicarbonate 24, BUN 11, , glucose of 83. Microbiology: Urine culture negative. Respiratory panel negative. Blood culture negative. ASSESSMENT AND PLAN: This is a 22-year-old female, , 2, para 1, who presented to the emergency room with shortness of breath after the patient was discharged from a vaginal delivery. She received one dose of Lasix prior to discharge home and she was found to have a BNP of 3141. CT of the chest showed bilateral pleural effusions. Echocardiogram showed normal ejection fraction. No septal wall motion abnormalities. The patient had a fever of 100.4, white count 16,000 and was given IV Zosyn. Possible intraabdominal or urinary infection. Urine culture was negative. White count has decreased. The patient has been afebrile with severe symptomatic anemia with hemoglobin of 7. The patient was transfused 4 units of blood with resultant hemoglobin of 11.6. The patient has had significant improvement, has had no vaginal bleeding that has soaked more than one to two pads in a day during this admission. CURRENT ISSUES: 1. Symptomatic anemia, shortness of breath, status post 4 units of packed red blood cell transfusion. The patient had vaginal bleeding at home. We will monitor for now and supplement with iron pills and vitamin C as an outpatient. 2. Bilateral pleural effusions, status post IV Lasix. Echo is normal. No signs of cardiomyopathy. Appreciate Dr. Putnam's input. We will discontinue patient's intravenous Lasix. 3. Electrolyte abnormalities. Potassium. The patient has been having diarrhea as an outpatient. No diarrhea episodes during this admission. She has been repleted with potassium. The patient has also received IV Lasix, which causes significant electrolyte abnormalities as well. Therefore, we will provide potassium supplement 40 mEq times two doses today for a potassium of 3, goal potassium 3.5 to 5. 4. [address] CT of the pelvis. Currently on IV Zosyn. Once the patient normalizes her white count, we will discontinue intravenous Zosyn if no other signs of infection. No empiric outpatient antibiotics. DISPOSITION: The patient may be transferred to medical/surgical floor, monitor for one more day and discharge in the morning if no fevers. JEFFD
[2017-05-28 01:09] LABS: COXSACKIE TYPE A-16 IgM Negative titer (Neg:<1:10); COXSACKIE TYPE A-24 IgM Negative titer (Neg:<1:10); COXSACKIE TYPE A-7 IgM Negative titer (Neg:<1:10); COXSACKIE TYPE A-9 IgM Negative titer (Neg:<1:10); COXSACKIE TYPE B1 Negative (Neg:<1:8); COXSACKIE TYPE B3 Negative (Neg:<1:8); COXSACKIE TYPE B4 Negative (Neg:<1:8); COXSACKIE TYPE B5 Negative (Neg:<1:8); COXSACKIE TYPE B6 Negative (Neg:<1:8)
--- NOTE | 2017-06-09 01:28 | DSES ---
DATE OF ADMISSION: 05/23/2017 DATE OF DISCHARGE: 05/24/2017 PRIMARY DISCHARGE DIAGNOSES: 1. Symptomatic anemia requiring 3 units of packed red blood cell transfusion. 2. Fever, unknown etiology, negative urine culture and blood culture. Chest x-ray has no pneumonia. 3. Bilateral pleural effusions requiring Lasix therapy. 4. Electrolyte abnormalities with low potassium. 5. . DISCHARGE MEDICATIONS: - Augmentin 875 by mouth twice a day - Lasix 40 daily - lactobacillus one tablet by mouth twice a day - potassium 20 mEq daily - Fioricet two capsules as needed for migraines - acetaminophen 650 every six as needed - Tums 500 as needed - dibucaine ointment every four as needed - Colace 100 daily as needed - multivitamin one tablet daily as needed CONSULTANTS DURING THIS ADMISSION: Dr. Jacky Putnam. PRIMARY CARE PHYSICIAN: None. Patient is referred to hospitalist office to obtain a new primary care physician. HOSPITAL COURSE: This is a 22-year-old female 2, para 1, presented to the emergency room (ER) with shortness of breath after patient was discharged from normal vaginal delivery. She received one dose of Lasix prior to her discharge home and was found to have beta-natruretic peptide (BNP) of 3141 on presentation to the ER. CT showed bilateral pleural effusions. Echocardiogram showed no wall motion abnormalities, normal ejection fraction, read by Dr. Jacky Putnam. No central venous pressure and pulmonary artery pressure, trace pericardial effusion. No significant valvular disease. Left ventricular ejection fraction 60-65%. Dr. Putnam was consulted, special machine stitcher. EKG shows sinus tachycardia, ventricular rate of 101. No other abnormalities. Patient was placed on Lasix intravenously with 4 liters diuresed out, net negative balance for 2 days. Weight of 72 kg on admission and discharge weight of 70.1 kg on discharge. Repeat EKG being negative. Repeat chest x-ray showing significant improvement in pulmonary edema. Patient had a fever. Maximum temperature (T-max) of 100.4, given Zosyn and discharged home on Augmentin. Urine and blood cultures were negative. White count improved from 16 to 13. Patient did receive red blood cell (RBC) transfusion, 3 units with increase in hemoglobin from 7 to 11.6. She had episodes of low potassium, which was supplemented. Troponins were negative times three. LABORATORIES: On discharge: White count 13.3, hemoglobin 11, hematocrit 36, platelet count 394. Sodium 142, potassium 3, chloride 107, bicarbonate 24, BUN 8, creatinine 0.56, glucose 83, magnesium 2. Troponin less than 0.02. 05/23 urine culture no growth. Methicillin-resistant Staphylococcus aureus (MRSA) screen 05/23, respiratory panel negative. Blood culture no growth after 5 days. 05/23 CT chest pulmonary congestion with pulmonary edema. Cannot exclude infectious etiology. CT abdomen and pelvis 05/23: Abnormal findings with isoechoic enlargement of bladder and uterus, limited due to noncontrast study. Moderate bilateral pleural effusions and basilar atelectasis. Repeat chest x-ray 05/24: Significant improvement of diffuse bilateral infiltrates with some minimal interstitial infiltrates in both lung bases. Small left effusion. Time spent on discharge 30 minutes.
== END 2017-05-24 15:04 | disposition home or self-care (01) | DRG 776 ==
LOC: M ED 05:37 → M ED INP 09:10 → M PCU 12:22
PROVIDERS: ADMIT General Practice; ATTEND General Practice
DX: O90.81 Anemia of the puerperium (principal); J90 Pleural effusion, not elsewhere classified; J98.11 Atelectasis; E87.6 Hypokalemia; O99.285 Endocrine, nutritional and metabolic diseases complicating the puerperium; O99.53 Diseases of the respiratory system complicating the puerperium; Z79.899 Other long term (current) drug therapy; Z87.891 Personal history of nicotine dependence; R19.7 Diarrhea, unspecified

== ENCOUNTER 2018-10-20 05:56 | Day surgery (SDC) | payer OTHER ==
[~2018-10-20] VITALS: Ht 160 cm; Wt 66.7 kg
[~2018-10-20 05:56] MED LIST changes: +ACET1TAB55 PO; +AUGM875T28 PO; +BACITAB PO; +BUSP10TA PO; +LASI20TA3 PO; +LASI40TA9 PO; +METH18TA PO; +POTA1TAB14 PO; +POTA20TA4 PO; -UNIS25TA2 PO; +UNIS25TA3 PO
[2018-10-20] MEDS ORDERED: LR 1,000 ML IV ONE (06:00)
[2018-10-20 06:21] LABS: HEMATOCRIT 39.3 % (36.0-47.0); HEMOGLOBIN 13.2 g/dl (12.0-15.5)
[2018-10-20 06:43] LABS: HCG, SERUM QUALITATIVE NEGATIVE (NEGATIVE)
[2018-10-20] MEDS ORDERED: PROPOFOL 200 MG/20 ML VIAL As Ordered ONE (09:46)
[2018-10-20] MEDS ORDERED: ROCURONIUM BROMIDE 50 MG/5 ML VIAL As Ordered ONE (09:46)
[2018-10-20] MEDS ORDERED: MIDAZOLAM INJ 2 MG/2 ML VIAL (J2250) As Ordered ONE (09:47)
[2018-10-20] MEDS ORDERED: fentaNYL 100 MCG/2 ML INJECTION (J3010) As Ordered ONE (09:47)
[2018-10-20] MEDS ORDERED: LIDOCAINE 2% INJ 100 MG/5 ML SDV (FOR ANES.) As Ordered ONE (09:47)
[2018-10-20] MEDS ORDERED: BUPIVACAINE HCL 0.25% 30 ML VIAL As Ordered ONE (09:51)
[2018-10-20] MEDS ORDERED: ONDANSETRON 4MG/2ML VIAL (J2405) As Ordered ONE (10:00)
[2018-10-20] MEDS ORDERED: METOCLOPRAMIDE INJ 10MG/2ML VIAL (J2765) As Ordered ONE (10:00)
[2018-10-20] MEDS ORDERED: NORCO, ANEXSIA 5/325MG TABLET (HYDROcodone/ACETAMINOPHEN) PO PRN (11:45)
[2018-10-20] MEDS ORDERED: LR 1,000 ML IV SCH (11:45)
[2018-10-20] MEDS ORDERED: ONDANSETRON 4MG/2ML VIAL (J2405) IV PRN (11:45)
[2018-10-20] MEDS: fentaNYL 100 MCG/2 ML INJECTION (J3010) IV PRN ×2 (11:53→12:01)
--- NOTE | 2018-10-20 12:35 | RO ---
DATE OF PROCEDURE: 10/20/2018 INDICATIONS FOR OPERATION: Ayde is a 23-year-old, G2, P 1-0-1-1 who presented to the office stating her desire for permanent sterilization. She had a that was complicated by cardiomyopathy, and she was intensely fearful of having a recurrence and for it to potentially be worse with any subsequent . She had talked to a neurosurgeon about this and she had decided that she had satisfied parity given the circumstances and she was very adamant that she desired permanent sterilization. PREOPERATIVE DIAGNOSIS: Satisfied parity POSTOPERATIVE DIAGNOSIS: Satisfied parity. SURGEON: Rosa Willard MD CAUSTIC MIXER: ANESTHESIA: MATERIAL FORWARDED TO THE LAB: Bilateral fallopian tubes. DESCRIPTION OF FINDINGS: Uterus sounded to 8 cm. Laparoscopic findings included a normal appearing uterus, fallopian tubes, ovaries, appendix was not visualized, liver edge was normal in appearance. There was a small peritoneal window on the left side of the posterior cul-de-sac. There were no obvious endometrial implants, and the uterosacral ligaments were not involved. INFECTION CLASSIFICATION: II ESTIMATED BLOOD LOSS: 5 mL. URINE OUTPUT: 300 mL. IV FLUIDS: 1100 mL of lactated Ringer. OPERATION PERFORMED: Laparoscopic bilateral salpingectomy. DESCRIPTION OF OPERATION: After obtaining informed consent, the patient was taken to the operating room. General endotracheal anesthesia was established. She was placed in low lithotomy position. She was prepped and draped in usual sterile fashion. [place] catheter was placed. Junction speculum was placed in the vagina and visualization of the cervix was obtained. A Hulka uterine manipulator was placed through the cervix into the uterus after sounding the uterus to 8 cm. Junction speculum was removed, and the patient was taken out of Trendelenburg position. After anesthetizing with 0.25% Marcaine, a 5 mm incision was made in the infraumbilical fold beneath the subcutaneous tissue. Daxa clamp was used to spread the subcutaneous tissue. Lower abdominal wall was manually the grabbed and lifted up. An OptiView trocar was placed at a 90 degrees angle, and the laparoscope was advanced through the port and intra-abdominal placement was confirmed with no injury noted below point of entry. Continuous low carbon dioxide began to establish a pneumoperitoneum at 50 mmHg pressure. We did a small survey of the abdomen and then we placed our two other trocars, these were both also 5 mm in size and they were placed under direct visualization in the right and left lower quadrants after anesthetizing the sites with 0.25% Marcaine. A complete pelvic and abdominal survey were then conducted, beginning at anterior cul-de-sac and anterior portion of the uterus, which were normal in appearance. Left and right fallopian tubes, round ligaments, broad ligaments and ovaries were observed with normal appearance. There was just a small filmy peritoneal window on the left side of the posterior cul-de-sac, otherwise the uterosacral ligaments were normal and the rest of the posterior cul-de-sac was normal. Survey of the upper abdomen revealed normal appearing liver edge. The appendix was not visualized. An Enseal device was introduced and the fallopian tubes were excised, first on the right side and then on the left using the same procedure, starting at the distal end of the fallopian tube maintaining good distance between the fallopian tube and the ovary, excising just under the fallopian tube all the way down to the cornu of the uterus. The fallopian tubes were removed from the abdomen up through the ports and an inspection of the pelvis revealed absolutely no bleeding. At that point, we terminated the procedure. The right and left lower quadrant ports were removed under direct visualization and observed to be hemostatic. Pneumoperitoneum was released prior to removal of the umbilical port. Incisions were reapproximated using 4-0 Monocryl and Dermabond. All instruments were removed from the vagina. The patient was returned to the supine position. All counts were correct times two. The patient tolerated the procedure well and was awakened from general anesthesia and taken to the recovery room in stable condition.
[2018-10-20 14:15] VITALS: BP 109/68
== END 2018-10-20 14:27 | disposition home or self-care (01) ==
LOC: M SDC 05:56
PROVIDERS: ATTEND Obstetrics & Gynecology
DX: Z30.2 Encounter for sterilization (principal); N92.4 Excessive bleeding in the premenopausal period; F41.9 Anxiety disorder, unspecified; F32.9 Major depressive disorder, single episode, unspecified; I10 Essential (primary) hypertension; K21.9 Gastro-esophageal reflux disease without esophagitis; Z88.8 Allergy status to other drugs, medicaments and biological substances; Z79.899 Other long term (current) drug therapy
CPT/HCPCS: 36415; 58661; 84703; 85014; 85018; 86850; 86900; 86901; 88302; J2250; J2405; J2765; J3010

== ENCOUNTER → 2019-02-04 | Outpatient (CLI) | payer OTHER ==
[~2019-02-04] MED LIST changes: +METHACHOLINE KIT (J7674) INH ONE
--- NOTE | 2019-02-04 12:11 | PFTRPT ---
Height: 63.00 Inches Weight: 147.00 Lbs BSA: 1.70 Diagnosis: R05 DATE OF PROCEDURE: 02/04/2019 ORDERED BY: Ayde Burroughs INTERPRETATION: Study of excellent technical quality. Under protocol, methacholine was administered. At a dose of 2.5 mg (13.875 CDUs), a 25% decline in the FEV1 was noted. PC of 1.59 is significant. Flow rates did return to baseline post bronchodilator administration. IMPRESSION: Positive methacholine challenge study. MTDD
== END ==
LOC: M CARPUL 11:05
PROVIDERS: ATTEND Nurse Practitioner Family
DX: R05 Cough (principal)

== ENCOUNTER → 2025-01-27 | Outpatient (REF) | payer OTHER ==
[~2025-01-27] MED LIST changes: -METHACHOLINE KIT (J7674) INH ONE; +POTA-298 PO; -POTA1TAB14 PO
[2025-01-30 13:37] LABS: HPV APTIMA Not Detected (Not Detected)
== END ==
LOC: M LAB REF 18:08
PROVIDERS: ATTEND Registered Nurse
DX: Z01.419 Encounter for gynecological examination (general) (routine) without abnormal findings (principal)
CPT/HCPCS: 87624; G0123